=== PATIENT | female | born 1960 | race Two or more races ===

== ENCOUNTER 2020-03-12 11:27 | Emergency (ER) | payer OTHER ==
[~2020-03-12] VITALS: Ht 157.5 cm; Wt 63.5 kg
[~2020-03-12 11:27] MED LIST: NO TOMA MEDICAMENTO; [UNRECOGNIZED DRUG - OTHER] PO
== END 2020-03-12 18:40 | disposition home or self-care (01) ==
LOC: ER 11:27
DX: K52.89 Other specified noninfective gastroenteritis and colitis (principal); Z03.818 Encounter for observation for suspected exposure to other biological agents ruled out